=== PATIENT | male | born 1950 | race Hispanic/Latino ===

== ENCOUNTER 2024-02-09 17:25 | Emergency (ER) | payer MEDICARE, MEDICAID ==
[~2024-02-09] VITALS: Ht 170.2 cm; Wt 74.8 kg
--- NOTE | 2024-02-09 17:54 | NUR ---
PT JUST NOW PLACED IN MY ED BED 9
[2024-02-09 17:59] VITALS: BP 126/63; PULSE 120; RESP 19; TEMP 99.5; O2SAT 100
--- NOTE | 2024-02-09 18:01 | NUR ---
REFUSAL OF TREATMENT: PT ARRIVED AND IS REFUSING ALL TREATMENTS AT THIS TIME. RODRIGO LUNDBERG HAS SPOKEN TO PT BUT HE STILL REFUSES. PT A/OX 4
--- NOTE | 2024-02-09 18:02 | ERN ---
General Chief Complaint: Fever Stated Complaint: FEVER Time Seen by MD: 17:28 Time Seen by Midlevel: 17:28 Source: patient, EMS History of Present Illness Initial Comments Patient is a 73-year-old male with a past medical history of BPH presenting to the emergency department with complaint of fever, chills, generalized weakness that started this morning at around 4:00 a.m.. Per EMS they obtained heart rate in the 120s along with a temperature of 100.1. On arrival patient reports having a Guzman catheter. He is refusing any sort of blood work. He states he only wants his urine checked. Denies any complaints. Allergies: Coded Allergies: No Known Drug Allergies (Verified Allergy, 09/23/12) Past Medical History Past Medical History: Other Medical History Other: PROSTATE Past Surgical History: Other Surgical History Other: PROSTATE SX Social History Social History: Other ROS Dictation CONSTITUTIONAL: Negative except for HPI HEAD/FACE: Negative except for HPI EENT: Negative except for HPI RESPIRATORY: Negative except for HPI GASTROINTESTINAL/ABDOMINAL: Negative except for HPI GENITOURINARY: Negative except for HPI MUSCULOSKELETAL: Negative except for HPI INTEGUMENTARY: Negative except for HPI NEUROLOGICAL/PSYCH: Negative except for HPI HEMATOLOGIC/LYMPHATIC: Negative except for HPI All Systems Negative, Except as noted above. 13 point review of systems assessed and all negative except for above. Physical Exam Physical Exam Dictation Vital Signs reviewed General Appearance: Alert, oriented x 3, no acute distress, well developed, nourished. Head and Face: non-traumatic. Eyes: PERRL, pink conjunctivas, eyelid no trauma, anterior chamber with arcus senilis. Ears: Pinnas intact and no signs of trauma or erythema ear canals clear and no discharge TM no erythema Nose: No discharge, no bleeding. Oropharynx: Mouth normal, tongue pink, pharynx clear,no erythema, tonsils no exudates, no abscesses noted, mucous membrane moist Neck: Supple, non-tender, no thyromegaly, no masses, no JVD, no bruits Breast:Deferred Chest:No tenderness, no crepitus, no paradoxical movement, no retractions Lungs:Clear, well-ventilated, symmetric, no rales, no wheezing, no rhonchi, no stridor, good breath sounds bilaterally Heart: Regular rate, regular rhythm, no murmur, no gallops Vascular: no peripheral edema, Abdomen: Soft, positive bowel sounds, nondistended, no guarding, nontender, no rebound, no masses no hepatomegaly, no splenomegaly, no Quiroga's sign, no hernias. Rectal: Deferred Genital: Deferred Neurological: Normal speech, motor function intact, sensory function intact Musculoskeletal: Neck nontender, full range of motion, back nontender, full range of motion, Extremities: nontender, full range of motion Skin: Color pink, dry, no turgor, no rash, no lacerations, no abrasions, no contusions. Lymphatic: Deferred Results Laboratory and Microbiology Lab and Micro Result Laboratory Tests Test 02/09/24 18:47 Urine Color YELLOW (YELLOW) Urine Appearance HAZY (CLEAR) Urine pH 8.0 (5.0-8.0) Urine Specific [place] 1.012 (1.001-1.031) Urine Protein 100 mg/dL (NEGATIVE) H Urine Glucose (UA) NEGATIVE mg/dL (NEGATIVE) Urine Ketones 5 mg/dL (NEGATIVE) H Urine Occult Blood LARGE (NEGATIVE) H Urine Nitrate 2+ (NEGATIVE) H Urine Bilirubin NEGATIVE mg/dL (NEGATIVE) Urine Urobilinogen 0.2 mg/dL (0.2-1.0) Urine Leukocyte Esterase 500 Brday/uL (NEGATIVE) H Urine RBC TNTC /HPF (0-1) H Urine WBC 26-50 /HPF (0-1) H Urine Squamous Epithelial Cells RARE /HPF (0-2) Urine Bacteria FEW /HPF (None Seen) Labs Reviewed?: Yes MDM Patient is a 73-year-old male with a past medical history of BPH presenting to the emergency department with complaint of fever, chills, generalized weakness that started this morning at around 4:00 a.m.. Per EMS they obtained heart rate in the 120s along with a temperature of 100.1. On arrival patient reports having a Guzman catheter. He is refusing any sort of blood work. He states he only wants his urine checked. Denies any complaints. I discussed with the patient that he needs a full septic workup given his age, history, and vital signs with EMS. I discussed that he may develop sepsis if he has a urinary tract infection. He states that he does not care about any that and only wants his urine checked in his refusing any blood work drawn at this time. His uri nalysis was collected in his consistent with infection. I did discussed with him that I can not discharge him because I need to obtain blood work to rule out sepsis. He was started on Rocephin however he ultimately decided to sign out against medical advice. ED Course Orders Procedure Category Date Status Time Urinalysis Profile LAB 02/09/24 Complete 17:28 Chest 1vw RAD 02/09/24 Resulted 17:28 Acetaminophen 500mg PHA 02/09/24 Complete Tab (Tylenol 500mg T 18:00 0.9%Nacl 1000ml (Ns PHA 02/09/24 Complete 1000ml) 18:00 Culture Urine ALEKSANDER 02/09/24 Complete 19:08 Ceftriaxone 1g Vial PHA 02/09/24 Complete (Rocephine 1g Inj) 19:30 Current Medications Medications (Trade) Dose Ordered Sig/Cary Route PRN Reason Start Time Stop Time Status Last Admin Dose Admin Acetaminophen (TYLenol 500MG TAB) 1,000 mg ONCE ONCE PO 02/09/24 18:00 02/09/24 18:01 DC Ceftriaxone Sodium (ROCEphine 1G INJ) 1 gm ONCE ONCE IVPB 02/09/24 19:30 02/09/24 19:31 DC 02/09/24 19:25 Sodium Chloride 1,000 ml @ 0 mls/hr ONCE ONCE IV 02/09/24 18:00 02/09/24 18:01 DC Vital Signs Date Time Temp Pulse Resp B/P (MAP) Pulse Ox O2 Delivery O2 Flow Rate FiO2 02/09/24 17:59 99.5 120 19 126/63 100 Room Air* 0 21 02/09/24 17:26 100.0 120 16 137/68 98 Room Air 0 6:00 PM: Septic workup initiated. However, patient is refusing all blood work at this time. Per EMS patient was febrile and tachycardic in the 120s in route. On arrival patient has a low-grade temp of 99.5 and is tachycardic in the 120s. DX & DISP Disposition: AMA Departure Impression: Primary Impression: Urinary tract infection Additional Impression: Fever Condition: Stable Referrals: SELF,REFERRAL (PCP) I have reviewed the case, and I agree with, Diagnosis and Plan I performed the substantive portion of the visit. I have reviewed and personally made and approve the management plan that is documented in the note by myself or the DANAE. I acknowledge for responsibility for the patient's management plan. GENNY LUNDBERG Feb 09, 2024 18:02 JUANI CEE DO Feb 11, 2024 12:05
--- NOTE | 2024-02-09 18:17 | HMCIMG ---
CHEST 1VW HISTORY: Fever COMPARISON: None FINDINGS: A frontal projection of the chest was obtained. No acute pulmonary infiltrates is seen. The heart is normal in size. Prominent interstitial markings are seen. Degenerative changes are seen. No evidence of aortic calcification is seen. IMPRESSION: 1. No acute pulmonary infiltrate is seen.
[2024-02-09 19:04] LABS: BILIRUBIN,URINE NEGATIVE (NEGATIVE); GLUCOSE, URINE (UA) NEGATIVE (NEGATIVE); KETONES,URINE 5 mg/dL (NEGATIVE); LEUKOCYTE ESTERASE ,URINE 500 Leu/uL (NEGATIVE); NITRATE,URINE 2+ (NEGATIVE); OCCULT BLOOD,URINE LARGE (NEGATIVE); PROTEIN,URINE 100 mg/dL (NEGATIVE); UROBILINOGEN,URINE 0.2 mg/dL (0.2-1.0)
[2024-02-09 19:07] LABS: ADD UA MICROSCOPIC YES; APPEARANCE,URINE HAZY (CLEAR); COLOR,URINE YELLOW (YELLOW)
--- NOTE | 2024-02-09 19:13 | NUR ---
REPORT ENDORSED TO EVI PENG
[2024-02-09 19:16] LABS: BACTERIA,URINE FEW /HPF (None Seen); MUCUS,URINE RARE LPF (None Seen); RBC,URINE TNTC /HPF (0-1); SQUAMOUS EPITHELIAL CELL,UR RARE /HPF (0-2); WBC,URINE 26-50 /HPF (0-1)
[2024-02-09] MEDS: cefTRIAXone 1G VIAL IVPB ONE (19:25)
[2024-02-09] MEDS: acetaMINOPHEN 500 MG TABLET PO ONE (19:30)
[2024-02-09] MEDS: 0.9%NACL 1000ML 1,000 ML IV ONE (19:30)
--- NOTE | 2024-02-09 19:31 | NUR ---
SECURED CONSENT FOR AMA AND REFUSAL FORM FOR ADMISSIONS, LABS AND MEDICATIONS EXPLAINED TO PATIENT RISK OF GOING HOME AGAINST DR'S ADVISED BUT STILL INSISISTED TO LEAVE. OFFERED HIM TYLENOL BEFORE HE GOES HE IS SPIKING TEMP 101.2,- REFUSED REMINDED PT THAT HE CAN JUST ALWAYS GO BACK IF HE DECIDED TO BE TREATED WILLIAM WALLACE AWARE WITH THE SITUATION
== END 2024-02-09 19:44 | disposition left against medical advice (07) ==
LOC: EDH 17:25
DX: N39.0 Urinary tract infection, site not specified (principal); R50.9 Fever, unspecified; Z98.890 Other specified postprocedural states
CPT/HCPCS: 99284; 96365; 71045; 87086 ×2; 87186; 81001; J0696

== ENCOUNTER 2024-02-20 11:22 | Emergency (ER) | payer MEDICARE, MEDICAID ==
[~2024-02-20] VITALS: Ht 165.1 cm; Wt 72.6 kg
--- NOTE | 2024-02-20 11:49 | ERN ---
ED Note History of Present Illness Stated Complaint: CATHETER Chief Complaint: Urinary Catheter Problems Time Seen by MD: 11:26 Dictation: PATIENT IS A 73-YEAR-OLD MALE COMING IN TODAY WITH A SIMONS CATHETER FROM HOME WITH GROSSLY HEMATURIA URINE IN THE SIMONS CATHETER BAG. HE STATES HE HAS HAD THIS FOR SEVERAL DAYS. STATES HIS PRIMARY CARE DOCTOR IS OUT IN [place] AND HE HAS A SIMONS CATHETER BECAUSE OF PROSTATE ISSUES AND WE WILL SELF CATHING FOR SEVERAL YEARS. NO FEVER NO CHILLS NO NAUSEA VOMITING. HE IS ON NO BLOOD T HINNERS AT THIS TIME Allergies: Coded Allergies: No Known Drug Allergies (Verified Allergy, 09/23/12) Home Meds Active Scripts Amoxicillin/Potassium Clav (Amox Tr-K Clv 875-125 mg Tab) 875 Mg-125 Mg Tablet, 1 EACH PO BID for 7 Days, #14 TAB 0 Refills Prov:SUNG ZHANG RESISTOR INSPECTOR 02/20/24 Past Medical History Past Medical History: Prostatitis, Other Additional Past Medical Hx: PROSTATE Surgical History: Other Surgical History Other: PROSTATE SX Social History: Other RN Note Reviewed/Agreed w/PFSH: Yes Review of System Dictation CONSTITUTIONAL: NEGATIVE EXCEPT FOR HPI HEAD/FACE: NEGATIVE EXCEPT FOR HPI EENT: NEGATIVE EXCEPT FOR HPI RESPIRATORY: NEGATIVE EXCEPT FOR HPI GASTROINTESTINAL/ABDOMINAL: NEGATIVE EXCEPT FOR HPI GENITOURINARY: NEGATIVE EXCEPT FOR HPI SIMONS CATHETER IN PLACE FROM HOME WITH HEMATURIA URINE MUSCULOSKELETAL: NEGATIVE EXCEPT FOR HPI INTEGUMENTARY: NEGATIVE EXCEPT FOR HPI NEUROLOGICAL/PSYCH: NEGATIVE EXCEPT FOR HPI HEMATOLOGIC/LYMPHATIC: NEGATIVE EXCEPT FOR HPI ALL SYSTEMS NEGATIVE, EXCEPT NOTED ABOVE. 13 POINT REVIEW OF SYSTEMS ASSESSED AND ALL NEGATIVE EXCEPT FOR ABOVE. Initial Vital Sign VS Vital Signs Date Time Temp Pulse Resp B/P (MAP) Pulse Ox O2 Delivery O2 Flow Rate FiO2 02/20/24 11:25 98.6 88 18 141/72 100 Physical Exam Dictation VITAL SIGNS REVIEWED NO PAIN AT THIS TIME GENERAL APPEARANCE: ALERT, ORIENTED X 3, NO ACUTE DISTRESS, WELL DEVELOPED, NOURISHED. HEAD AND FACE: NON-TRAUMATIC. EYES: PERRL, PINK CONJUNCTIVAS, EYELID NO TRAUMA, ANTERIOR CHAMBER WITH ARCUS SENILIS. EARS: PINNAS INTACT AND NO SIGNS OF TRAUMA OR ERYTHEMA EAR CANALS CLEAR AND NO DISCHARGE TM NO ERYTHEMA NOSE: NO DISCHARGE, NO BLEEDING. OROPHARYNX: MOUTH NORMAL, TONGUE PINK, PHARYNX CLEAR,NO ERYTHEMA, TONSILS NO EXUDATES, NO ABSCESSES NOTED, MUCOUS MEMBRANE MOIST NECK: SUPPLE, NON-TENDER, NO THYROMEGALY, NO MASSES, NO JVD, NO BRUITS BREAST:DEFERRED CHEST:NO TENDERNESS, NO CREPITUS, NO PARADOXICAL MOVEMENT, NO RETRACTIONS LUNGS:CLEAR, WELL-VENTILATED, SYMMETRIC, NO RALES, NO WHEEZING, NO RHONCHI, NO STRIDOR, GOOD BREATH SOUNDS BILATERALLY HEART: REGULAR RATE, REGULAR RHYTHM, NO MURMUR, NO GALLOPS VASCULAR: NO PERIPHERAL EDEMA, ABDOMEN: SOFT, POSITIVE BOWEL SOUNDS, NONDISTENDED, NO GUARDING, NONTENDER, NO REBOUND, NO MASSES NO HEPATOMEGALY, NO SPLENOMEGALY, NO ENGLISH'S SIGN, NO HERNIAS. RECTAL: DEFERRED GENITAL: DEFERRED SIMONS CATHETER IN PLACE TO LEG BAG TO RIGHT LEG. GROSSLY HEMATURIA URINE NOTED IN BAG. NEUROLOGICAL: NORMAL SPEECH, MOTOR FUNCTION INTACT, SENSORY FUNCTION INTACT MUSCULOSKELETAL: NECK NONTENDER, FULL RANGE OF MOTION, BACK NONTENDER, FULL RANGE OF MOTION, EXTREMITIES: NONTENDER, FULL RANGE OF MOTION SKIN: COLOR PINK, DRY, NO TURGOR, NO RASH, NO LACERATIONS, NO ABRASIONS, NO CONTUSIONS. LYMPHATIC: DEFERRED Results (Laboratory/Radiology) Laboratory/Radiology Laboratory Tests Test 02/20/24 11:41 Urine Color RED (YELLOW) Urine Appearance BLOODY (CLEAR) H Urine pH 7.0 (5.0-8.0) Urine Specific [place] 1.025 (1.001-1.031) Urine Protein >=300 mg/dL (NEGATIVE) H Urine Glucose (UA) NEGATIVE mg/dL (NEGATIVE) Urine Ketones 5 mg/dL (NEGATIVE) H Urine Occult Blood LARGE (NEGATIVE) H Urine Nitrate POSITIVE (NEGATIVE) H Urine Bilirubin SMALL mg/dL (NEGATIVE) H Urine Urobilinogen 1.0 mg/dL (0.2-1.0) Urine Leukocyte Esterase MODERATE Brady/uL Urine RBC TNTC /HPF (0-1) H Urine WBC 51-100 /HPF (0-1) H Urine Bacteria Few /HPF (None Seen) Labs Reviewed?: Yes ED Course ED Course Orders Procedure Category Date Status Time Urinalysis Profile LAB 02/20/24 Complete Catherized 11:47 Cbc With Differential LAB 02/20/24 Logged 11:47 Basic Metabolic Panel LAB 02/20/24 Logged 11:47 Culture Urine ALEKSANDER 02/20/24 In Process 13:24 Amox/Clav 875/125mg PHA 02/20/24 Complete Tab (Augmentin 875-1 13:29 Current Medications Medications (Trade) Dose Ordered Sig/Cary Route PRN Reason Start Time Stop Time Status Last Admin Dose Admin Amoxicillin/ Clavulanate Potassium (Augmentin 875-125 Tablet) 1 each ONCE STAT PO 02/20/24 13:29 02/20/24 13:33 DC 02/20/24 14:33 Vital Signs Date Time Temp Pulse Resp B/P (MAP) Pulse Ox O2 Delivery O2 Flow Rate FiO2 02/20/24 11:25 98.6 88 18 141/72 100 THIRTEEN 30, PATIENT REFUSED LABS AT THIS TIME STATES HE ONLY WANTS HIS SIMONS CATHETER CHANGED AND CHECK URINE. RN CHANGED SIMONS CATHETER IN PLACE TO LEG BAG 1445, PATIENT CONTINUES TO HAVE HEMATURIA URINE HOWEVER HE WAS DIAGNOSED WITH A ACUTE CYSTITIS WITH HEMATURIA AND AUGMENTIN WAS ADMINISTERED. HE REFUSES ANY LABS OR ADMISSION AT THIS TIME. I ADVISED HIM I DID NOT HAVE A UROLOGIST ON-CALL TO HANDLE HIS SIMONS CATHETER HE SAID HE WOULD FOLLOW UP WITH HIS PRIMARY CARE DOCTOR AT NEXT WEEK FOR REFERRAL Medical Decision Making MDM MEDICAL DISCHARGE MAKING BASED ON BASIC LABS AND URINALYSIS WITH SIMONS CATHETER EXCHANGE. PATIENT DIAGNOSED WITH A ACUTE CYSTITIS WITH HEMATURIA AND CHRONIC SIMONS CATHETER PATIENT GIVEN AUGMENTIN 875 FOR POINT OF CARE TREATMENT AND WE WILL BE DISCHARGED HOME WITH AUGMENTIN HE STATES HE WILL FOLLOW UP WITH HIS PRIMARY CARE DOCTOR NEXT WEEK FOR UROLOGY REFERRAL DX & DISP Disposition: Discharge Departure Impression: Primary Impression: Acute cystitis with hematuria Additional Impressions: Simons catheter problem, Urinary catheter (Simons) change required Condition: Stable Scripts Amoxicillin/Potassium Clav (Amox Tr-K Clv 875-125 mg Tab) 875 Mg-125 Mg Tablet 1 EACH PO BID for 7 Days, #14 TAB 0 Refills Prov: SUNG ZHANG RESISTOR INSPECTOR 02/20/24 Additional Instructions: SECONDS FOLLOW-UP WITH PRIMARY CARE PROVIDER IN 1 TO 2 DAYS. TAKE MEDICATIONS DIRECTED HERE IN THE EMERGENCY ROOM. OKAY TO CONTINUE HOME MEDICATIONS UNLESS OTHERWISE DISCUSSED DURING YOUR VISIT IN THE EMERGENCY ROOM TODAY. RETURN TO YOUR NEAREST EMERGENCY ROOM IF SYMPTOMS WORSEN OR IF THERE IS NO IMPROVEMENT. CALL 911 IF YOU NEED IMMEDIATE ASSISTANCE. TAKE TYLENOL OR MOTRIN UAPG-[id number] NEEDED AND IF NO CONTRAINDICATIONS ARE PRESENT. INCREASE ORAL HYDRATION. A WOUND CULTURE OR URINE CULTURE WAS ORDERED HERE IN THE EMERGENCY ROOM DEPARTMENT PLEASE FOLLOW-UP WITH PRIMARY CARE PROVIDER AND ADVISE THEM TO GET REPEAT PORTS FROM OUR FACILITY. IF YOU HAD ANY NAYAN WRAP/SPLINTS THAT WERE APPLIED HERE, PLEASE DO NOT REMOVE THEM UNTIL YOU SEE YOUR PRIMARY CARE OR SPECIALTY. TAKE ANTIBIOTICS DIRECTED UNTIL GONE, INCREASE YOUR WATER INTAKE. FOLLOW UP WITH YOUR PRIMARY CARE DOCTOR NEXT WEEK FOR UROLOGY REFERRAL. Referrals: NONE (PCP) Time of Disposition: 14:48 I have reviewed the case, and I agree with, Diagnosis and Plan SUNG ZHANG NP Feb 20, 2024 11:48 CHARLENE EMMANUEL MD Feb 20, 2024 15:44
--- NOTE | 2024-02-20 13:07 | NUR ---
PT REFUSED LAB DRAW, Vahid SARAVIA SASH MAKER WAS MADE AWARE
[2024-02-20 13:19] LABS: BILIRUBIN,URINE SMALL mg/dL (NEGATIVE); GLUCOSE, URINE (UA) NEGATIVE (NEGATIVE); KETONES,URINE 5 mg/dL (NEGATIVE); LEUKOCYTE ESTERASE ,URINE MODERATE Leu/uL (NEGATIVE); NITRATE,URINE POSITIVE (NEGATIVE); PROTEIN,URINE >=300 mg/dL (NEGATIVE)
[2024-02-20 13:23] LABS: ADD UA MICROSCOPIC YES; APPEARANCE,URINE BLOODY (CLEAR); COLOR,URINE RED (YELLOW); OCCULT BLOOD,URINE LARGE (NEGATIVE)
[2024-02-20 13:38] LABS: RBC,URINE TNTC /HPF (0-1)
[2024-02-20 13:40] LABS: BACTERIA,URINE Few /HPF (None Seen); WBC,URINE 51-100 /HPF (0-1)
[2024-02-20] MEDS: AMOX/CLAV 875/125MG TAB PO STA (14:33)
[2024-02-20] MEDS ORDERED: AMOX1TAB16 PO (14:49)
[2024-02-20 16:24] VITALS: BP 135/71; PULSE 86; RESP 18; TEMP 98.6; O2SAT 100
== END 2024-02-20 16:34 | disposition home or self-care (01) ==
LOC: EDH 11:22
DX: N30.01 Acute cystitis with hematuria (principal); T83.9XXA Unspecified complication of genitourinary prosthetic device, implant and graft, initial encounter; Z46.6 Encounter for fitting and adjustment of urinary device; Z98.890 Other specified postprocedural states; Y84.6 Urinary catheterization as the cause of abnormal reaction of the patient, or of later complication, without mention of misadventure at the time of the procedure
CPT/HCPCS: 51702; 81001; 87086; 87186; 99284

== ENCOUNTER 2024-09-23 15:23 | Emergency (ER) | payer MEDICARE, MEDICAID ==
[~2024-09-23] VITALS: Ht 165.1 cm; Wt 73.5 kg
[~2024-09-23 15:23] MED LIST: AMOX1TAB16 PO
--- NOTE | 2024-09-23 15:48 | NUR ---
REFUSAL OF TREATMENT SIGNED BY PT
[2024-09-23 19:54] LABS: APPEARANCE,URINE CLOUDY (CLEAR); GLUCOSE, URINE (UA) NEGATIVE (NEGATIVE); LEUKOCYTE ESTERASE ,URINE 500 Leu/uL (NEGATIVE); NITRATE,URINE 2+ (NEGATIVE); OCCULT BLOOD,URINE LARGE (NEGATIVE)
[2024-09-23 20:04] LABS: ADD UA MICROSCOPIC YES
[2024-09-23 20:07] LABS: NON-SQUAMOUS EPITHELIAL CELL 2 /HPF (0-2); OTHER CASTS, URINE 2 /LPF (None Seen); SQUAMOUS EPITHELIAL CELL,UR FEW /HPF (0-2); UNCLASSIFIED CRYSTAL 1 /HPF (None Seen); WBC CLUMP MANY /HPF (0-1)
--- NOTE | 2024-09-23 20:23 | NUR ---
pt now not refusing lab work and iv.
--- NOTE | 2024-09-23 20:46 | ERN ---
ED Note History of Present Illness Stated Complaint: CATHETER ISSUE Chief Complaint: Urinary Catheter Problems Time Seen by MD: 15:24 Time Seen by Midlevel: 15:30 Dictation: 73-year-old male with a history of a recent TURP in May of this year. Coming in for change in Guzman catheter. Patient states he might have tugging on it last night and feels like it might have come out. Patient denies having any fever, nausea vomiting or diarrhea. Patient has in triage triggered series, sepsis alert was called for fever of 101, and tachycardia. Patient stated that he has these symptoms due to a ice tea that he drank that was bad, refusing a septic workup he states he only wants us to exchange his Guzman and test his urine for infection. Patient has signed a refusal of treatment. Allergies: Coded Allergies: No Known Drug Allergies (Verified Allergy, 09/23/12) Home Meds Active Scripts Amoxicillin/Potassium Clav (Amox Tr-K Clv 875-125 mg Tab) 875 Mg-125 Mg Tablet, 1 EACH PO BID for 7 Days, #14 TAB 0 Refills Prov:SUNG ZHANG [employer] COORDINATOR 02/20/24 Past Medical History Past Medical History: Prostatitis, Other Additional Past Medical Hx: PROSTATE Surgical History: Other Surgical History Other: PROSTATE SX Social History: Other Review of System Dictation Constitutional: Negative for fever,chills, and weight loss Eyes: Negative for injury, pain,redness, and discharge ENT: Negative for injury,pain or swelling Cardiovascular: Negative for chest pain, palpitations, and edema Respiratory: Negative for shortness of breath, cough, and wheezing, Abdomen/GI: Negative for abdominal pain, nausea, vomiting, diarrhea, and constipation Back: Negative for injury and pain : Negative for injury, bleeding and discharge, indwelling Guzman MS/Extremity: Negative for injury and deformity Skin: Negative for rash, and discoloration Neuro: Negative for headache, weakness, numbness, tingling, and seizure Psych: Negative for suicide ideation, homicidal ideation, and hallucinations Review of Systems: was completed Initial Vital Sign VS Vital Signs Date Time Temp Pulse Resp B/P (MAP) Pulse Ox O2 Delivery O2 Flow Rate FiO2 09/23/24 15:45 101.7 104 14 125/57 95 Room Air 0 09/23/24 20:18 21 Physical Exam Dictation General: awake, alert, NAD Head/Face: Normocephalic, atraumatic Eyes: PERRL, EOMI, vision at baseline ENT: oral cavity clear, TMs clear, no signs of infection Neck: Trachea midline, supple, no nuchal rigidity Cardiovascular: RRR, normal S1/S2, No MRGs, no JVD Respiratory: CTAB, no respiratory distress, No rales or wheezes Abdomen: Soft, non-tender, non-distended, normal bowel sounds, no guarding or rebound. Skin: Warm, dry, normal turgor, no rash MS/Extremity: Pulses equal, no cyanosis, neurovascular intact, FROM Neuro: COAx4, GCS 15, strength 5/5, CN 2-12 intact, normal cerebellar exam, normal gait, Psych: Normal behavior, mood, and affect normal Results (Laboratory/Radiology) Laboratory/Radiology Laboratory Tests Test 09/23/24 19:42 09/23/24 20:35 Urine Color LIGHT-YELLOW (YELLOW) Urine Appearance CLOUDY (CLEAR) H Urine pH 7.0 (5.0-8.0) Urine Specific [place] 1.004 (1.001-1.031) Urine Protein 70 mg/dL (NEGATIVE) H Urine Glucose (UA) NEGATIVE mg/dL (NEGATIVE) Urine Ketones NEGATIVE mg/dL (NEGATIVE) Urine Occult Blood LARGE (NEGATIVE) H Urine Nitrate 2+ (NEGATIVE) H Urine Bilirubin NEGATIVE mg/dL (NEGATIVE) Urine Urobilinogen 0.2 mg/dL (0.2-1.0) Urine Leukocyte Esterase 500 Brady/uL (NEGATIVE) H Urine RBC 11-25 /HPF (0-1) H Urine WBC TNTC /HPF (0-1) H Urine WBC Clumps (Auto) MANY /HPF (0-1) Urine Squamous Epithelial Cells FEW /HPF (0-2) Urine Non-Squamous Epithelial Cells 2 /HPF (0-2) Urine Other Crystals (Auto) 1 /HPF (None Seen) Urine Bacteria Few /HPF (None Seen) Urine Other Casts 2 /LPF (None Seen) White Blood Count 6.6 K/uL (4.8-10.8) Red Blood Count 4.83 MIL/uL (4.50-6.20) Hemoglobin 11.7 g/dL (14.0-18.0) L Hematocrit 37.8 % (42-54) L Mean Corpuscular Volume 78.3 fL (79-99) L Mean Corpuscular Hemoglobin 24.2 pg (27.0-33.0) L Mean Corpuscular Hemoglobin Concent 31.0 g/dL (32.0-36.0) L Red Cell Distribution Width 25.0 % (11.0-15.5) H Platelet Count 244 K/uL (130-400) Mean Platelet Volume 9.7 fL (7.5-10.5) Immature Granulocyte % (Auto) 0.2 % (0-1) Neutrophils (%) (Auto) 83.4 % (40.0-77.0) H Lymphocytes (%) (Auto) 10.3 % (21.0-51.0) L Monocytes (%) (Auto) 4.7 % (3.0-13.0) Eosinophils (%) (Auto) 1.1 % (0.0-8.0) Basophils (%) (Auto) 0.3 % (0.0-5.0) Neutrophils # (Auto) 5.5 K/uL (1.8-7.7) Lymphocytes # (Auto) 0.7 K/uL (1.0-4.8) L Monocytes # (Auto) 0.3 K/uL (0.1-1.0) Eosinophils # (Auto) 0.07 K/uL (0.00-0.70) Basophils # (Auto) 0.02 K/uL (0.00-0.20) Absolute Immature Granulocyte (auto 0.01 K/uL (0-1) Nucleated Red Blood Cells 0.0 % (0.0-0.19) Red Blood Cell Morphology See comments Sodium Level 141 mmol/L (136-145) Potassium Level 3.8 mmol/L (3.5-5.1) Chloride Level 105 mmol/L (101-111) Carbon Dioxide Level 27 mmol/L (21-32) Blood Urea Nitrogen 9 mg/dL (7-18) Creatinine 1.0 mg/dL (0.5-1.3) Glomerular Filtration Rate Calc 78 mL/min (>90) Random Glucose 91 mg/dL (70-105) Lactic Acid Level 1.8 mmol/L (0.8-2.5) Total Calcium 8.7 mg/dL (8.5-10.1) Labs Reviewed?: Yes ED Course ED Course Orders Procedure Category Date Status Time Urinalysis Profile LAB 09/23/24 Complete 15:44 *Nursing CPOE 09/23/24 Transmitted Communication: 15:44 Culture Urine ALEKSANDER 09/23/24 In Process 20:04 Cbc With Differential LAB 09/23/24 Complete 20:24 Basic Metabolic Panel LAB 09/23/24 Complete 20:24 Lactic Acid LAB 09/23/24 Complete 20:24 Blood Cult ALEKSANDER 09/23/24 In Process 20:24 Cefepime Hcl 2 Gm PHA 09/23/24 Complete Vial (Maxipime 2 Gm Vi 20:42 Current Medications Medications (Trade) Dose Ordered Sig/Cary Route PRN Reason Start Time Stop Time Status Last Admin Dose Admin Cefepime HCl (MAXipime 2 gm vial) 2 gm ONCE STAT IVPB 09/23/24 20:42 09/23/24 20:46 DC 09/23/24 20:56 Vital Signs Date Time Temp Pulse Resp B/P (MAP) Pulse Ox O2 Delivery O2 Flow Rate FiO2 09/23/24 20:18 98.4 88 16 133/109 98 Room Air* 0 21 09/23/24 15:45 101.7 104 14 125/57 95 Room Air 0 Medical Decision Making MDM MDM: 73-year-old male with a history of a recent TURP in May of this year in [facility].. Coming in for change in Guzman catheter. Patient states he might have tugging on it last night and feels like it might have come out. Patient denies having any fever, nausea vomiting or diarrhea. Patient has in triage triggered series, sepsis alert was called for fever of 101, and tachycardia. Patient stated that he has these symptoms due to a ice tea that he drank that was bad, refusing a septic workup he states he only wants us to exchange his Guzman and test his urine for infection. Patient has signed a refusal of treatment. At 8:30 p.m. and notified patient that he had a very severe urinary tract infection, educated on the benefits of getting blood drawn is reassess his white count count and kidney function. Patient at this time agrees to have blood drawn and start the septic workup. Patient's CBC shows no white count, no anemia, no thrombocytopenia. Chemistry is unremarkable. Normal lactic level. UA shows evidence of a urinary tract infection. Discussed patient's for admission due to age, and having an indwelling Guzman he is at risk for complications. However patient refused to be admitted. So patient states he just wants antibiotic prescription and he would go home. Educated patient if he begins with fevers again, nausea or vomiting or back pain he needs to report back to the emergency room. Patient verbalized understanding, answered all questions. Differential diagnosis: Sepsis, pyelonephritis, UTI, malfunctioning Guzman catheter Rationale: Tests considered and ordered secondary to shared decision making include: labs, ECG and radiology Previous outside records reviewed: Old ER visits. Risk of complication and/or morbidity or mortality of patient management: None Medications-Per medication reconciliation Need for hospitalization: Patient does meet criteria for hospitalization. Need for emergency major/minor surgery: No There are no social concerns with this patient. Prescription drug management Prescriptions will include symptomatic care Patient's prior external medical records from other ER visits were reviewed by me as indicated. Prior testing and results from previous visits were reviewed. Prior tests were taken into account with medical decision making and resource utilization, independent historian/historians were used to obtain complete medical history. I independently interpreted the test that were performed, results were reviewed by me and considered findings on radiology if ordered. Medical management and examination interpretation discussions were had by me with other qualified healthcare professionals as indicated for the patient's care. DX & DISP Disposition: Discharge Departure Impression: Primary Impression: Urinary catheter (Guzman) change required Additional Impression: Urinary tract infection Condition: Stable Scripts Sulfamethoxazole/Trimethoprim (Bactrim Ds Tablet) 800 Mg-160 Mg Tablet 1 TAB PO BID for 7 Days, #14 TAB 0 Refills Prov: GERSON PEREIRA NP 09/23/24 Additional Instructions: Cheryl el antibiotico ,seguir con morton doctor familiar o Urologo. Regresar a la emergenica si tiene nausea, vomito, fiebre o dolor de espalda Referrals: SELF,REFERRAL (PCP) Time of Disposition: 21:27 I have reviewed the case, and I agree with, Diagnosis and Plan GERSON PEREIRA NP Sep 23, 2024 20:46
[2024-09-23 20:53] LABS: IMMATURE GRANULOCYTE ABSOLUTE 0.01 K/uL (0-1); NUCLEATED RED BLOOD CELLS 0.0 % (0.0-0.19); PLATELET COUNT (AUTO) 244 K/uL (130-400); RED BLOOD CELL COUNT(AUTO) 4.83 MIL/uL (4.50-6.20); RED CELL DISTRIBUTION WIDTH 25.0 % (11.0-15.5); WHITE BLOOD COUNT (AUTO) 6.6 K/uL (4.8-10.8)
[2024-09-23 20:56] LABS: CREATININE 1.0 mg/dL (0.5-1.3); GLOMERULAR FILTR. RATE CALC 78.0 mL/min (>90); GLUCOSE,RANDOM 91.0 mg/dL (70-105); SODIUM SERUM 141.0 mmol/L (136-145); UREA NITROGEN, BLOOD 9.0 mg/dL (7-18)
[2024-09-23] MEDS ORDERED: SULF1TAB42 PO (21:29)
--- NOTE | 2024-09-23 21:41 | NUR ---
PATIENT READY FOR DISCHARGE, ANTIBIOTIC STILL INFUSING DUE TO POSITIONAL IV
--- NOTE | 2024-09-23 21:57 | NUR ---
PER PATIENT, HE WAS OFFERED ADMISSION TO THE HOSPITAL FOR UTI, PATIENT DOES NOT WISH TO BE ADMITTED, WILL BE DISCHARGED AFTER IV ANTIBIOTICS FINISH AND TREAT UTI OUTPATIENT WITH ORAL ANTIBIOTICS.
--- NOTE | 2024-09-23 22:26 | NUR ---
IV ANTIBIOTIC INFUSION COMPLETE AT THIS TIME
[2024-09-23 22:39] VITALS: BP 154/83; PULSE 85; RESP 16; TEMP 98.2; O2SAT 95
== END 2024-09-23 22:39 | disposition home or self-care (01) ==
LOC: EDH 15:23
DX: N39.0 Urinary tract infection, site not specified (principal); Z46.6 Encounter for fitting and adjustment of urinary device
CPT/HCPCS: 99284; 96365; 80048; 85025; 87040 ×2; 87086 ×2; 87186; 83605; 81001; 36415; 51702; J0692